=== PATIENT | female | born 1990 | race Caucasian/White ===

== ENCOUNTER 2018-03-09 13:08 | Outpatient (CLI) | payer OTHER, MEDICAID | END 2018-03-09 14:47 | disposition home or self-care (01) | LOC: OBT 13:08 → L-D 13:21 → OBT 14:47 | DX: O36.8330 Maternal care for abnormalities of the fetal heart rate or rhythm, third trimester, not applicable or unspecified (principal); O24.419 Gestational diabetes mellitus in pregnancy, unspecified control; Z3A.35 35 weeks gestation of pregnancy | CPT/HCPCS: 76818 ==

== ENCOUNTER 2018-03-31 10:49 | Outpatient (CLI) | payer OTHER | END 2018-03-31 13:35 | disposition home or self-care (01) | LOC: OBT 10:49 → L-D 10:49 → OBT 13:35 | DX: O24.410 Gestational diabetes mellitus in pregnancy, diet controlled (principal); Z3A.38 38 weeks gestation of pregnancy | CPT/HCPCS: 76818 ==

== ENCOUNTER 2018-04-01 08:37 | Inpatient (IN) | payer OTHER ==
[2018-04-01] MEDS: LACTATED RINGER'S 1,000 ML IV ×3 (03:00→15:54)
[2018-04-01] MEDS ORDERED: IBUPROFEN 600 MG TAB PO (10:30)
[2018-04-01] MEDS ORDERED: CARBOPROST 250 MCG INJ IM (10:30)
[2018-04-01] MEDS ORDERED: BUTORPHANOL 2 MG INJ IV (10:30)
[2018-04-01] MEDS ORDERED: MISOPROSTOL 200 MCG TAB PR (10:30)
[2018-04-01] MEDS ORDERED: OXYTOCIN 30 UNITS/LR 500 ML IV ×3 (10:30)
[2018-04-01] MEDS ORDERED: LIDOCAINE 1% (MPF) 30 ML INJ INJ (10:30)
[2018-04-01] MEDS ORDERED: BUTORPHANOL 1 MG INJ IV (10:30)
[2018-04-01] MEDS ORDERED: METHYLERGONOVINE 0.2 MG INJ IM (10:30)
[2018-04-01 10:36] LABS: ADD MAN DIFF? NO
[2018-04-01 10:44] LABS: WHITE BLOOD COUNT 11.2 10^3/ul (4.8-10.8)
[2018-04-01 10:44] LABS: BASOPHILS % 0.1 % (0.0-2.0); EOSINOPHILS # 0.1 10^3/ul (0.0-0.5); EOSINOPHILS % 0.5 % (0.0-7.0); HEMATOCRIT 38.3 % (37.0-47.0); HEMOGLOBIN 12.5 g/dl (12.0-16.0); LYMPHOCYTES # 2.6 10^3/ul (0.8-2.9); LYMPHOCYTES % 23.1 % (15.0-51.0); MEAN CORPUSCULAR HEMOGLOBIN 26.9 pg (29.0-33.0); MEAN CORPUSCULAR HGB CONC 32.6 g/dl (32.0-37.0); MEAN CORPUSCULAR VOLUME 82.4 fl (82.0-101.0); MEAN PLATELET VOLUME 11.3 fl (7.4-10.4); MONOCYTE # 0.5 10^3/ul (0.3-0.9); MONOCYTES % 4.7 % (0.0-11.0); NEUTROPHIL # 7.9 10^3/ul (1.6-7.5); NEUTROPHILS % 71.2 % (39.0-77.0); PLATELET COUNT 260 10^3/UL (140-415); RED BLOOD COUNT 4.65 10^6/ul (4.20-5.40); RED CELL DISTRIBUTION WIDTH 14.9 % (11.5-14.5)
[2018-04-01 11:01] LABS: INR 0.93; PARTIAL THROMBOPLASTIN TIME 28.9 Sec (23.0-35.0); PROTIME 12.5 Sec (11.9-14.9)
[2018-04-01] MEDS ORDERED: MISOPROSTOL 100 MCG TAB PO (12:00)
[2018-04-01] MEDS ORDERED: MISOPROSTOL 100 MCG TAB VAG (12:00)
[2018-04-01] MEDS ORDERED: MISOPROSTOL 50 MCG CAPSULE VAG (12:00)
[2018-04-01] MEDS: MISOPROSTOL 50 MCG CAPSULE PO ×3 (12:07→20:43)
[2018-04-01 12:20] LABS: HEPATITIS B SURFACE ANTIGEN NEGATIVE (NEGATIVE)
[2018-04-01] MEDS: DEXTROSE 5%-LR 1,000 ML IV (19:16)
[2018-04-01 22:39] LABS: RAPID PLASMA REAGIN NONREACTIVE (NR)
[2018-04-02] MEDS: LACTATED RINGER'S 1,000 ML IV ×3 (00:30→04:28)
[2018-04-02] MEDS: ACCU-CHEK XX ×3 (01:00→05:00)
[2018-04-02] MEDS ORDERED: FENTAnyl 2MCG/ML-ROPIV 0.2% 100 ML (01:16)
[2018-04-02] MEDS ORDERED: NALOXONE (0.4 MG/ML) INJ IV (02:00)
[2018-04-02] MEDS ORDERED: ONDANSETRON 4 MG INJ IV ×2 (02:00→09:30)
[2018-04-02] MEDS ORDERED: DIPHENHYDRAMINE 50 MG INJ IV ×2 (02:00→09:30)
[2018-04-02] MEDS ORDERED: FENTAnyl 2MCG/ML-ROPIV 0.2% 100 ML BAG EPI (02:00)
[2018-04-02] MEDS ORDERED: TRIMETHOBENZAMIDE 100 MG/ML VIAL IM (02:00)
[2018-04-02 03:00] LABS: HIV 1&2 ANTIBODY NEGATIVE (NEGATIVE)
[2018-04-02] MEDS: OXYTOCIN 30 UNITS/LR 500 ML IV ×3 (03:13→14:18)
[2018-04-02] MEDS: DEXTROSE 5%-LR 1,000 ML IV (03:25)
[2018-04-02] MEDS ORDERED: MINERAL OIL LIGHT 10 ML VIAL TOP (07:00)
[2018-04-02] MEDS ORDERED: LIDOCAINE 1% (MPF) 30 ML INJ (08:39)
[2018-04-02] MEDS: LACTATED RINGER'S 1,000 ML IV* ×2 (09:16→18:45)
[2018-04-02] MEDS ORDERED: DIBUCAINE 1% 30 GM OINT TOP (09:30)
[2018-04-02] MEDS ORDERED: MISOPROSTOL 200 MCG TAB PR (09:30)
[2018-04-02] MEDS ORDERED: ACETAMINOPHEN 325 MG TAB PO ×2 (09:30)
[2018-04-02] MEDS ORDERED: METHYLERGONOVINE 0.2 MG INJ IM (09:30)
[2018-04-02] MEDS ORDERED: DIPHENHYDRAMINE 25 MG CAP PO (09:30)
[2018-04-02] MEDS ORDERED: SENNA/DOCUSATE NA (8.6MG/50MG) TAB PO (09:30)
[2018-04-02] MEDS ORDERED: HYDROCODONE/APAP (5/325) TAB PO ×2 (09:30)
[2018-04-02] MEDS ORDERED: ONDANSETRON 4 MG TAB PO (09:30)
[2018-04-02] MEDS ORDERED: CARBOPROST 250 MCG INJ IM (09:30)
[2018-04-02] MEDS ORDERED: OXYTOCIN 30 UNITS/LR 500 ML IV (09:30)
[2018-04-02] MEDS ORDERED: MAGNESIUM HYDROXIDE 30ML CUP PO (09:30)
[2018-04-02] MEDS: IBUPROFEN 800 MG TAB PO ×3 (12:00→23:30)
[2018-04-02] MEDS: LANOLIN 7 GM TUBE TOP (14:19)
[2018-04-03] MEDS: IBUPROFEN 800 MG TAB PO ×4 (06:24→23:33)
[2018-04-03 07:45] LABS: ADD MAN DIFF? NO
[2018-04-03 07:56] LABS: BASOPHILS % 0.1 % (0.0-2.0); EOSINOPHILS # 0.1 10^3/ul (0.0-0.5); EOSINOPHILS % 0.7 % (0.0-7.0); HEMATOCRIT 34.1 % (37.0-47.0); LYMPHOCYTES % 21.6 % (15.0-51.0); MEAN CORPUSCULAR HEMOGLOBIN 27.4 pg (29.0-33.0); MEAN CORPUSCULAR HGB CONC 32.3 g/dl (32.0-37.0); MEAN PLATELET VOLUME 11.5 fl (7.4-10.4); MONOCYTE # 0.7 10^3/ul (0.3-0.9); NEUTROPHIL # 10.1 10^3/ul (1.6-7.5); PLATELET COUNT 222 10^3/UL (140-415); RED BLOOD COUNT 4.01 10^6/ul (4.20-5.40); RED CELL DISTRIBUTION WIDTH 14.9 % (11.5-14.5)
[2018-04-03 07:56] LABS: WHITE BLOOD COUNT 14.1 10^3/ul (4.8-10.8)
[2018-04-04] MEDS: IBUPROFEN 800 MG TAB PO ×3 (05:32→17:13)
[2018-04-04] MEDS: VARICELLA VACCINE LIVE/PF 1,350 UNIT/0.5 ML ML SC* (09:00)
[2018-04-04] MEDS: MEASLES,MUMPS,RUBELLA VACCINE INJ SC* (09:00)
[2018-04-04] MEDS: DIPHTH/TET/ACEL PERTUSS (ADULT) 0.5 ML VIAL IM* ×2 (09:00→12:42)
[2018-04-06 10:47] LABS: RUBELLA ANTIBODY - IGG <0.90 index
[2018-04-07 11:47] LABS: RUBELLA ANTIBODY - IGM <20.00 AU/mL
== END 2018-04-04 17:41 | disposition home or self-care (01) | DRG 806 ==
LOC: L-D 08:37 → PP1 04-02 11:18
PROVIDERS: Obstetrics & Gynecology
PROC: 10D07Z6 Extraction of Products of Conception, Vacuum, Via Natural or Artificial Opening (ICD-10-PCS; principal; 2018-04-02)
DX: O24.429 Gestational diabetes mellitus in childbirth, unspecified control (principal); Z68.41 Body mass index [BMI] 40.0-44.9, adult; Z37.0 Single live birth; O99.214 Obesity complicating childbirth; E66.01 Morbid (severe) obesity due to excess calories; O69.81X0 Labor and delivery complicated by cord around neck, without compression, not applicable or unspecified; Z3A.39 39 weeks gestation of pregnancy
CPT/HCPCS: 62319; 76815; 76818; 82962; 85025; 85610; 85730; 86592; 86703; 86762; 86803; 86850; 86900; 86901; 87340; 88307; 90686; 90715; 90716; 99464